=== PATIENT | male | born 1945 | race Caucasian/White ===

== ENCOUNTER 2020-01-15 07:50 | Outpatient (CLI) | payer MEDICARE, OTHER, SELFPAY ==
[2020-01-20 12:32] LABS: SARS-CoV-2 RNA Undetected (Undetected)
== END 2020-01-15 08:10 ==
PROVIDERS: Visit Provider Nurse Practitioner Family
DX: Z03.818 Encounter for observation for suspected exposure to other biological agents ruled out (principal)
CPT/HCPCS: U0003